=== PATIENT | male | born 1980 ===

== ENCOUNTER 2025-01-21 01:35 | Emergency (ER) | payer SELFPAY ==
[2025-01-21 01:36] VITALS: BP 134/97; PULSE 87; RESP 20; TEMP 36.6; O2SAT 95
--- NOTE | 2025-01-21 01:45 | DI.RAD_ITS ---
Exam(s) XR RIBS LT W PA LAT CHEST EXAM: XR RIBS LT W PA LAT CHEST CLINICAL HISTORY: fell, left anterior/lateral ribs TTP. TECHNIQUE: 2D digital imaging was performed. COMPARISON: No exams were available for comparison FINDINGS: Total 6 images: Left ribs-four views: No left rib fractures identified. Chest x-ray-two views: Heart size normal. Mediastinum not widened. No infiltrates nor pleural effusions. No pneumothorax. IMPRESSION: No left rib fractures identified No acute pulmonary findings. DATA REPOSITORY: RADIATION DOSE DELIVERED:
[2025-01-21] MEDS: Ketorolac 15 MG/ML VIAL IM (02:00)
[2025-01-21] MEDS: Acetaminophen 500 MG TAB 1000 MG PO (02:00)
[2025-01-21] MEDS: Lidocaine 5% Patch 1 PATCH TP (02:03)
--- NOTE | 2025-01-21 02:05 | ED.GENADUL_ITS ---
Discharge Plan Disposition Patient Disposition: Home Condition: Good Discharge Details Clinical Impression: Rib pain Primary Care Provider: [facility] Provider: Jina Muñoz Home Meds and New Rx's Prescriptions: New meloxicam 7.5 mg tablet 7.5 mg PO BID PRNQty: 14 0RF lidocaine 5 % adhesive patch,medicated 1 patch topical DAILY Qty: 15 0RF Rx Instructions: leave on most painful area for up to 12 hrs Continued clonazepam [Klonopin] 1 mg tablet 1 mg PO DAILY PRN (Reason: anxiety) Discharge Instructions Instructions: Blunt Chest Trauma ED Additional Instructions: Tylenol over the counter for pain; follow the directions on the bottle. Meloxicam twice a day as needed for pain. Lidocaine patch; change every 24 hours Call your primary care doctor in the morning to schedule an appointment for within the next 72 hours to follow up on your visit here. It is still possible you have broken ribs; to tell for sure we would need to get a CT scan. It is important that you return to the emergency department for new or worsening symptoms including new/different/worse pain, shortness of breath, feeling like you are going to pass out, or if you have any other concerns. HPI General Mode of arrival: ambulatory . Date/Time Provider Initiated Documentation: 01/21/25 01:37 . Limitations to Documentation: no limitations . Information obtained by: patient . HPI Narrative: 44yo M with hx of hypertension presenting with left chest wall pain after a fall. Yesterday evening around 3pm was racing his daughter, tripped, and fell forward lending on his left arm and left chest. Had immediate left sided chest pain, worse with deep inspiration. Was able to get up and walk after the event. Has tried tylenol at home, last around 7pm, but pain is still moderate to severe and seems to be worsening. It is keeping him awake. Denies pain or injury elsewhere; did not strike his head or lose conciseness. No pain in left upper extremity including hand and wrist. No numbness or weakness. Otherwise in his usual state of health. Related Data Home Medications ?Medication ?Instructions ?Recorded ?Confirmed clonazepam 1 mg tablet (Klonopin) 1 mg PO DAILY PRN an xiety 01/21/25 01/21/25 lidocaine 5 % topical patch 1 patch topical DAILY #15 ea 01/21/25 meloxicam 7.5 mg tablet 7.5 mg PO BID PRN #14 tabs 0 01/21/25 Previous Rx's ?Medication ?Instructions ?Recorded lidocaine 5 % topical patch 1 patch topical DAILY #15 ea 01/21/25 meloxicam 7.5 mg tablet 7.5 mg PO BID PRN #14 tabs 0 01/21/25 Allergies Allergy/AdvReac Type Severity Reaction Status Date / Time No Known Allergies Allergy Unverified 01/21/25 01:44 General Stated Complaint: Chest/Rib EDISON: 4 Review of Systems Narrative: see HPI Exam Narrative Exam Narrative: GENERAL: Alert, no acute distress SKIN: Warm and well perfused. No rashes, bruises, discolorations or abrasions. HEAD: Atraumatic, normocephalic without edema, discoloration or evidence of trauma. EYES: PERRL. No scleral icterus or conjunctival injection. Extraocular muscles intact without nystagmus or diplopia. NECK: Trachea midline. No discolorations or edema. CV: Regular rate and rhythm, Normal s1 and s2. No murmurs, rubs, or gallops. PV: Radial pulses 2+ bilaterally and symmetric. 2+ capillary refill. No extremity edema. CHEST: No abrasions or ecchymosis. Chest symmetric with respirations. Left anterior/lateral chest wall TTP. No crepitus. No step offs. Lungs are clear to auscultation bilaterally. ABDOMEN: No ecchymosis or abrasions. Soft, nondistended, nontender. BACK: No abrasions, skin openings, or ecchymosis. Spine without bony tenderness MSK: No gross deformities or discolorations or lesions. Tolerates full range of motion of extremities without tenderness. NEURO: Alert and oriented to person, place, and time. GCS 15. Sensation grossly intact. Strength 5/5 in bilateral UE and LE. Course Vital Signs Vital signs: Vital Signs Temperature 36.6 C 01/21/25 01:36 Pulse 87 01/21/25 01:36 Respiratory Rate 20 01/21/25 01:36 Blood Pressure 134/97 H 01/21/25 01:36 Pulse Oximetry 95 01/21/25 01:36 Temperature 36.6 C 01/21/25 01:36 Temperature Source Oral 01/21/25 01:36 Pulse 87 01/21/25 01:36 Respiratory Rate 20 01/21/25 01:36 Respiratory Effort Normal 01/21/25 01:39 Respiratory Depth Normal 01/21/25 01:39 Respiratory Pattern Normal 01/21/25 01:39 Blood Pressure 134/97 H 01/21/25 01:36 Blood Pressure Position Sitting 01/21/25 01:36 Pulse Oximetry 95 01/21/25 01:36 Oxygen Delivery Method Room Air 01/21/25 01:36 Oxygen Flow Rate 0 01/21/25 01:36 Pain Level 6 01/21/25 01:39 Medical Decision Making 44yo M with hx of hypertension presenting with left chest wall pain after a fall about 10 hours prior to arrival. Pain unrelieved by home tylenol. Vital signs reassuring on arrival, on exam has marked reproducible tenderness to left anterior chest wall. No sternal tenderness. No crepitus. No overlying echymoiss or abrasions. No other significant traumatic findings on exam. Will give tylenol & toradol as well as lidocaine patch for symptoms, get chest & rib films to evaluate for acute traumatic chest pain from fall from standing. History is not suggestive of acute coronary syndrome or pulmonary embolism; would not get EKG/labs. XR independently reviewed; no hemothorax or pneumothorax or displaced rib fractures on my view, radiology reads with no acute findings. On reassessment he reports his pain has improved (though is still present) and he is able to take a full breath in. 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 Will discharge home with prescription for meloxicam and lidocaine patches; advised patient to return if his symptoms worsen especially if it is affecting his breathing. Discharged home; discharge instructions and return precautions were reviewed with patient who verbalized understanding. All questions were answered and he is in full agreement with the plan. PFSH All Active Problems (Updated 01/21/25 @ 03:31 by Jina Muñoz MD) Rib pain (Acute) Social History Smoking risk assessment performed?: No
--- NOTE | 2025-01-21 03:23 | DI.VRAD_ITS ---
PROCEDURE INFORMATION: Exam: XR Left Ribs Exam date and time: 01/21/2025 2:11 AM Age: 44 years old Clinical indication: Injury or trauma; Fall; Blunt trauma (contusions or hematomas); Rib area, left side; Injury date: 01/21/25; Fell, left anterior/lateral ribs ttp TECHNIQUE: Imaging protocol: Radiologic exam of the left ribs. Views: 2 views. COMPARISON: No relevant prior studies available. FINDINGS: Bones/joints: Normal. Soft tissues: Normal. IMPRESSION: No acute findings. PROCEDURE INFORMATION: Exam: XR Chest Exam date and time: 01/21/2025 2:11 AM Age: 44 years old Clinical indication: Injury or trauma; Fall; Blunt trauma (contusions or hematomas); Rib area, left side; Injury date: 01/21/25; Fell, left anterior/lateral ribs ttp TECHNIQUE: Imaging protocol: Radiologic exam of the chest. Views: 2 views. COMPARISON: No relevant prior studies available. FINDINGS: Lungs: Unremarkable. No consolidation. Pleural spaces: Unremarkable. No pleural effusion. No pneumothorax. Heart/Mediastinum: Unremarkable. No cardiomegaly. Bones/joints: Unremarkable. IMPRESSION: No acute findings. Dictated and Authenticated by: Maco Acosta MD. Orderin Wanda Muro MD
[2025-01-21 04:02] VITALS: BP 134/97; PULSE 87; RESP 20; TEMP 36.6; O2SAT 95
== END 2025-01-21 04:02 | disposition home or self-care (01) ==
PROVIDERS: Emergency Provider Student in an Organized Health Care Education/Training Program
DX: R07.81 Pleurodynia (principal); W01.198A Fall on same level from slipping, tripping and stumbling with subsequent striking against other object, initial encounter; Y93.02 Activity, running; Y92.480 Sidewalk as the place of occurrence of the external cause
CPT/HCPCS: 99283; 71046; 71100; J1885